=== PATIENT | male | born 1940 | race Caucasian/White ===

== ENCOUNTER 2016-08-07 08:20 | Day surgery (SDC) | payer MEDICARE, OTHER ==
--- NOTE | ~2016-08-07 | EGD ---
EGD REPORT [facility] [address] [address] NAME: OBI CASTRO JR : 44 STATUS : REG [facility] [place] PAT#: [id number] AGE: 76 ADM/REG DATE : 08/07/16 MR#: [id number] REPORT SERV DATE: 08/07/16 DICTATED BY: JANE SEGURA DATE: 08/07/16 REPORT STATUS : Draft TRANSCRIBED BY: [employer] DATE: 08/07/16 [facility] Patient Name: Obi Castro Jr Date of : 1940 Attending MD: JANE SEGURA, Procedure Date No Time: 08/07/2016 Procedure: Upper EUS Indications: Pancreatic neuroendocrine. Referring MD: Hermilo Cordero MD, JACQUI WASSERMAN MD Medicines: Monitored Anesthesia Care Complications: No immediate complications. Estimated blood loss: None. Procedure: Pre-Anesthesia Assessment: - ASA Grade Assessment: III - A patient with severe systemic disease. After obtaining informed consent, the endoscope was passed under direct vision. Throughout the procedure, the patient's blood pressure, pulse, and oxygen saturations were monitored continuously. The Endoscope was introduced through the mouth, and advanced to the second part of duodenum. Findings: Endosonographic Finding : An oval mass was identified in the pancreatic body. The mass was hypoechoic. The mass measured 6 mm by 4 mm in maximal cross-sectional diameter. The endosonographic borders were well-defined. No lymphadenopathy seen. There was no sign of significant endosonographic abnormality in the common bile duct. There was no sign of significant endosonographic abnormality in the examined duodenum. Endosonographic images of the stomach were unremarkable. There was no sign of significant endosonographic abnormality in the esophagus. Impression: - A mass was identified in the pancreatic body. - There was no sign of significant pathology in the common bile duct. - There was no sign of significant pathology in the examined duodenum. - Endosonographic images of the stomach were unremarkable. - There was no sign of significant pathology in the esophagus. EGD REPORT [facility] [id number] [place]. [address] NAME: OBI CASTRO JR : 44 STATUS : REG [facility]#: [id number] AGE: 76 ADM/REG DATE : 08/07/16 MR#: [id number] REPORT SERV DATE: 08/07/16 DICTATED BY: JANE SEGURA DATE: 08/07/16 REPORT STATUS : Draft TRANSCRIBED BY: [email or web address] DATE: 08/07/16 Recommendation: - Return to previous diet. - Repeat the upper endoscopic ultrasound in 2 years for surveillance given the lesion has not changed in the last 4 years. Procedure Code(s): --- Professional --- 36614, Esophagogastroduodenoscopy, flexible, transoral; with endoscopic ultrasound examination, including the esophagus, stomach, and either the duodenum or a surgically altered stomach where the jejunum is examined distal to the anastomosis Diagnosis Code(s): --- Professional --- K86.8, Other specified diseases of pancreas D37.8, Neoplasm of uncertain behavior of other specified digestive organs CPT copyright 2013 [employer]. All rights reserved. The codes documented in this report are preliminary and upon manager heart failure review may be revised to meet current compliance requirements. JANE SEGURA, 08/07/2016 9:43 AM Number of Addenda: 0 Note Initiated On: 08/07/2016 9:24 AM Scope Withdrawal Time 0 hours 0 minutes 0 seconds [address] [place] [address]
[~2016-08-07 08:20] MED LIST: ACTOS30 PO; ACTOS45 PO; ALLEGRA-D24 HOUR PO; AMOXIL500C PO; ASAB PO; ATEN25 PO; ATEN50 PO; BLACK CHERRY; CALTRA600D PO; CELEBREX2 PO; COLCRYS0.6 MG PO; COUMADIN3 MG PO; COUMADIN6 MG PO; DIOVAN HC1 PO; DRONED400 PO; FERROUS SULF324 MG PO; FLOMAX4 PO; GLUCPH PO; IRON325 MG PO; JANTOVEN6 MG PO; KLOR-CON M1010 MEQ PO; L20 PO; L40 PO; LEVOTHROID50 MCG PO; LEVOTHROID75 MCG PO; LEVOTHYROXIN25 MCG PO; LEVOTHYROXIN75 MCG PO; LOP50 PO; LOPID6 PO; MEDROLPAK4 PO; MELATONIN5 M1 PO; MULTIPLE VIT PO; P10 PO; PACERONE200 MG PO; PLAVIX PO; POTASSIUM95 MG PO; PRILO PO; PRIN20 PO; SHARK CARTILAGE PO; ULORIC80 MG PO; VITAMIN B-122500 MCG SL; VITAMIN D31000 UNIT PO; XARELTO20 MG PO; Z100 PO; ZETIA PO; ZYRTEC ALLGY10 MG PO; [UNRECOGNIZED DRUG - OTHER]; [UNRECOGNIZED DRUG - OTHER] PO; [UNRECOGNIZED DRUG - OTHER] PO
[2016-08-07 08:50] LABS: CALCIUM, SERUM 8.6 MG/DL (8.5-10.4); CHLORIDE, SERUM 104 MMOL/L (96-112); CO2 (CARBON DIOXIDE) 29 MMOL/L (24-34); CREATININE 1.05 MG/DL (0.70-1.30); GFR AFRICAN AMERICAN 81 ML/MIN (>=60); GFR NON AFRICAN AMERICAN 70 ML/MIN (>=60); GLUCOSE, SERUM 128 MG/DL (60-99); SODIUM, SERUM 142 MMOL/L (135-148)
[2016-08-07 09:00] LABS: BUN (BLOOD UREA NITROGEN) 16 MG/DL (6-23)
== END 2016-08-07 23:59 | disposition home health service (06) ==
LOC: DMU 08:20
PROVIDERS: Anesthesiology; Internal Medicine Gastroenterology
PROC: BD47ZZZ Ultrasonography of Gastrointestinal Tract (ICD-10-PCS; 2016-08-07)
PROC: 0DJ08ZZ Inspection of Upper Intestinal Tract, Via Natural or Artificial Opening Endoscopic (ICD-10-PCS; principal; 2016-08-07 10:30)
DX: K86.89 Other specified diseases of pancreas (principal); G47.30 Sleep apnea, unspecified; M19.90 Unspecified osteoarthritis, unspecified site; K21.9 Gastro-esophageal reflux disease without esophagitis; N18.9 Chronic kidney disease, unspecified; E03.9 Hypothyroidism, unspecified; D63.1 Anemia in chronic kidney disease; E11.22 Type 2 diabetes mellitus with diabetic chronic kidney disease; E78.00 Pure hypercholesterolemia, unspecified; I25.10 Atherosclerotic heart disease of native coronary artery without angina pectoris; I48.91 Unspecified atrial fibrillation; I12.9 Hypertensive chronic kidney disease with stage 1 through stage 4 chronic kidney disease, or unspecified chronic kidney disease; Z88.8 Allergy status to other drugs, medicaments and biological substances; Z99.81 Dependence on supplemental oxygen; Z87.891 Personal history of nicotine dependence
CPT/HCPCS: 80048